=== PATIENT | male | born 1955 | race Caucasian/White ===

== ENCOUNTER 2018-09-26 09:57 | Outpatient (REF) | payer OTHER, SELFPAY ==
[2018-09-26 21:10] LABS: Anion Gap 9.6 mmol/L (3-11); BUN 16 mg/dL (7-18); CO2 30.4 mmol/L (21.0-32.0); CREATININE 1.06 mg/dL (0.70-1.30); Chloride 96 mmol/L (98-107); Cholesterol 276 mg/dL (50-200); Glucose 253 mg/dL (70-100); HDL Cholesterol 40 mg/dL (40-60); Hemoglobin A1C 9.9 % (4.5-6.2); LDL CHOLESTEROL 185 mg/dL (<100); Potassium 4.4 mmol/L (3.5-5.1); Sodium 136 mmol/L (136-145); Triglyceride 249 mg/dL (30-150)
[2018-09-26 22:46] LABS: COMMENT (LAB VIEW ONLY) 129.52 mg/dL
== END 2018-09-26 10:17 ==
LOC: NCHCN 09:57
PROVIDERS: PCP Internal Medicine; Visit Provider Internal Medicine
DX: E11.9 Type 2 diabetes mellitus without complications (principal); I10 Essential (primary) hypertension; E78.00 Pure hypercholesterolemia, unspecified
CPT/HCPCS: 80048; 80061; 83721; 82043; 82570; 83036

== ENCOUNTER 2018-12-11 11:34 | Outpatient (REF) | payer OTHER, SELFPAY ==
[2018-12-11 21:56] LABS: Anion Gap 12.4 mmol/L (3-11); BUN 42 mg/dL (7-18); CO2 26.6 mmol/L (21.0-32.0); CREATININE 1.58 mg/dL (0.70-1.30); Calcium 10.2 mg/dL (8.5-10.1); Chloride 101 mmol/L (98-107); Estimated GFR 44.52 (mL/min/1.73m2); Glucose 151 mg/dL (70-100); Potassium 5.1 mmol/L (3.5-5.1); Sodium 140 mmol/L (136-145)
== END 2018-12-11 11:54 ==
LOC: NCHCN 11:34
PROVIDERS: PCP Internal Medicine; Visit Provider Internal Medicine
DX: I50.9 Heart failure, unspecified (principal)
CPT/HCPCS: 80048

== ENCOUNTER 2018-12-18 12:51 | Outpatient (REF) | payer OTHER, SELFPAY ==
[2018-12-18 21:21] LABS: Anion Gap 13.1 mmol/L (3-11); BUN 40 mg/dL (7-18); CO2 23.9 mmol/L (21.0-32.0); CREATININE 1.54 mg/dL (0.70-1.30); Calcium 9.8 mg/dL (8.5-10.1); Chloride 102 mmol/L (98-107); Estimated GFR 45.85 (mL/min/1.73m2); Glucose 110 mg/dL (70-100); Potassium 4.9 mmol/L (3.5-5.1); Sodium 139 mmol/L (136-145)
== END 2018-12-18 13:11 ==
LOC: NCHCN 12:51
PROVIDERS: PCP Internal Medicine; Visit Provider Internal Medicine
DX: I50.9 Heart failure, unspecified (principal)
CPT/HCPCS: 80048

== ENCOUNTER 2018-12-26 08:56 | Outpatient (REF) | payer OTHER, SELFPAY ==
[2018-12-26 21:37] LABS: Anion Gap 11.4 mmol/L (3-11); BUN 27 mg/dL (7-18); CO2 24.6 mmol/L (21.0-32.0); CREATININE 1.33 mg/dL (0.70-1.30); Calcium 9.3 mg/dL (8.5-10.1); Chloride 105 mmol/L (98-107); Estimated GFR 54.31 (mL/min/1.73m2); Glucose 145 mg/dL (70-100); Potassium 4.8 mmol/L (3.5-5.1); Sodium 141 mmol/L (136-145)
== END 2018-12-26 09:16 ==
LOC: NCHCN 08:56
PROVIDERS: PCP Internal Medicine; Visit Provider Internal Medicine
DX: I50.9 Heart failure, unspecified (principal)
CPT/HCPCS: 80048

== ENCOUNTER 2019-01-12 22:02 | Outpatient (REF) | payer OTHER, SELFPAY ==
[2019-01-12 21:13] LABS: Anion Gap 10.2 mmol/L (3-11); BUN 21 mg/dL (7-18); CO2 26.8 mmol/L (21.0-32.0); Calcium 9.9 mg/dL (8.5-10.1); Chloride 103 mmol/L (98-107); Glucose 99 mg/dL (70-100); Potassium 4.9 mmol/L (3.5-5.1); Sodium 140 mmol/L (136-145)
[2019-01-15 11:42] LABS: HBs Antibody, Quant <3.1 mIU/mL; Hepatitis B Surface Ab Negative; Hepatitis B Surface Ag Negative (NEGAT)
== END 2019-01-12 22:22 ==
LOC: NCHCN 22:02
PROVIDERS: PCP Internal Medicine; Visit Provider Internal Medicine
DX: R94.5 Abnormal results of liver function studies (principal); N17.9 Acute kidney failure, unspecified
CPT/HCPCS: 80048; 86706; 87340

== ENCOUNTER 2019-02-02 12:36 | Outpatient (REF) | payer OTHER, SELFPAY ==
[2019-02-02 21:20] LABS: BUN 25 mg/dL (7-18); CREATININE 1.17 mg/dL (0.70-1.30); Calcium 9.9 mg/dL (8.5-10.1); Chloride 104 mmol/L (98-107); Glucose 144 mg/dL (70-100); Potassium 5.1 mmol/L (3.5-5.1); Sodium 141 mmol/L (136-145)
== END 2019-02-02 12:56 ==
LOC: NCHCN 12:36
PROVIDERS: PCP Internal Medicine; Visit Provider Internal Medicine
DX: N17.9 Acute kidney failure, unspecified (principal)
CPT/HCPCS: 80048

== ENCOUNTER 2019-03-22 13:21 | Outpatient (REF) | payer OTHER, SELFPAY ==
[2019-03-22 22:50] LABS: Anion Gap 8.9 mmol/L (3-11); BUN 19 mg/dL (7-18); CO2 27.1 mmol/L (21.0-32.0); CREATININE 1.25 mg/dL (0.70-1.30); Calcium 9.5 mg/dL (8.5-10.1); Chloride 106 mmol/L (98-107); Estimated GFR 58.34 (mL/min/1.73m2); Glucose 156 mg/dL (74-106); Sodium 142 mmol/L (136-145)
== END 2019-03-22 13:41 ==
LOC: NCHCN 13:21
PROVIDERS: PCP Internal Medicine; Visit Provider Internal Medicine
DX: I10 Essential (primary) hypertension (principal); E11.9 Type 2 diabetes mellitus without complications
CPT/HCPCS: 80048

== ENCOUNTER 2019-10-22 22:39 | Outpatient (REF) | payer OTHER, SELFPAY ==
[2019-10-22 22:40] LABS: Hemoglobin A1C 7.5 % (3.8-5.6)
[2019-10-22 22:50] LABS: ALT 50 U/L (16-63); AST 29 U/L (15-37); Albumin 4.1 g/dL (3.4-5.0); Alkaline Phosphatase 140 U/L (46-116); Anion Gap 9.1 mmol/L (3-11); BUN 18 mg/dL (7-18); Bilirubin, Total 1.1 mg/dL (0.2-1.0); CO2 25.9 mmol/L (21.0-32.0); CREATININE 1.39 mg/dL (0.70-1.30); Calcium 9.5 mg/dL (8.5-10.1); Calculated LDL 91 mg/dL (<100); Chloride 106 mmol/L (98-107); Cholesterol 152 mg/dL (<200); Estimated GFR 51.45 (mL/min/1.73m2); Glucose 131 mg/dL (74-106); HDL Cholesterol 45 mg/dL (40-60); Potassium 5.9 mmol/L (3.5-5.1); Sodium 141 mmol/L (136-145); Total Protein 7.5 g/dL (6.4-8.2); Triglyceride 84 mg/dL (<150)
[2019-10-24 11:10] LABS: PSA, Screening 0.2 ng/mL (0.0-4.5)
== END 2019-10-22 22:59 ==
LOC: NCHCN 22:39
PROVIDERS: PCP Internal Medicine; Visit Provider Internal Medicine
DX: E11.9 Type 2 diabetes mellitus without complications (principal); I25.10 Atherosclerotic heart disease of native coronary artery without angina pectoris; Z12.5 Encounter for screening for malignant neoplasm of prostate
CPT/HCPCS: 80053; 80061; 84153; 83036

== ENCOUNTER 2019-11-13 08:47 | Outpatient (REF) | payer OTHER, SELFPAY | END 2019-11-13 09:07 | LOC: NCHCN 08:47 | PROVIDERS: PCP Internal Medicine; Visit Provider Internal Medicine | DX: E87.5 Hyperkalemia (principal) | CPT/HCPCS: 84132 ==

== ENCOUNTER 2020-01-21 18:42 | Outpatient (REF) | payer OTHER, SELFPAY ==
[2020-01-21 21:50] LABS: COMMENT (LAB VIEW ONLY) 127.56 mg/dL
== END 2020-01-21 19:02 ==
LOC: NCHCN 18:42
PROVIDERS: PCP Internal Medicine; Visit Provider Internal Medicine
DX: E11.9 Type 2 diabetes mellitus without complications (principal)
CPT/HCPCS: 82043; 82570

== ENCOUNTER 2020-02-25 08:35 | Outpatient (REF) | payer OTHER, SELFPAY ==
[2020-02-25 21:05] LABS: Anion Gap 7.5 mmol/L (3-11); BUN 16 mg/dL (7-18); CO2 27.5 mmol/L (21.0-32.0); CREATININE 1.36 mg/dL (0.70-1.30); Calcium 9.5 mg/dL (8.5-10.1); Chloride 101 mmol/L (98-107); Estimated GFR 52.76 (mL/min/1.73m2); Glucose 188 mg/dL (74-106); Potassium 5.4 mmol/L (3.5-5.1); Sodium 136 mmol/L (136-145)
== END 2020-02-25 08:55 ==
LOC: NCHCN 08:35
PROVIDERS: PCP Internal Medicine; Visit Provider Internal Medicine
DX: I10 Essential (primary) hypertension (principal)
CPT/HCPCS: 80048

== ENCOUNTER 2020-03-24 10:17 | Outpatient (REF) | payer OTHER, SELFPAY ==
[2020-03-24 21:55] LABS: Anion Gap 7.1 mmol/L (3-11); BUN 20 mg/dL (7-18); CO2 27.9 mmol/L (21.0-32.0); CREATININE 1.61 mg/dL (0.70-1.30); Calcium 9.4 mg/dL (8.5-10.1); Chloride 103 mmol/L (98-107); Estimated GFR 43.42 (mL/min/1.73m2); Glucose 159 mg/dL (74-106); NT-proBNP 1198 pg/mL (<300); Potassium 5.5 mmol/L (3.5-5.1); Sodium 138 mmol/L (136-145)
== END 2020-03-24 10:37 ==
LOC: NCHCN 10:17
PROVIDERS: PCP Internal Medicine; Visit Provider Internal Medicine
DX: I10 Essential (primary) hypertension (principal); R06.02 Shortness of breath
CPT/HCPCS: 80048; 83880

== ENCOUNTER 2020-03-28 14:03 | Outpatient (REF) | payer OTHER, SELFPAY ==
[2020-03-28 22:02] LABS: Anion Gap 7.8 mmol/L (3-11); BUN 35 mg/dL (7-18); CO2 29.2 mmol/L (21.0-32.0); CREATININE 1.92 mg/dL (0.70-1.30); Calcium 9.5 mg/dL (8.5-10.1); Chloride 100 mmol/L (98-107); Estimated GFR 35.44 (mL/min/1.73m2); Glucose 216 mg/dL (74-106); NT-proBNP 489 pg/mL (<300); Potassium 4.9 mmol/L (3.5-5.1); Sodium 137 mmol/L (136-145)
== END 2020-03-28 14:23 ==
LOC: NCHCN 14:03
PROVIDERS: PCP Internal Medicine; Visit Provider Internal Medicine
DX: I10 Essential (primary) hypertension (principal); R06.02 Shortness of breath
CPT/HCPCS: 80048; 83880

== ENCOUNTER 2020-08-28 16:00 | Outpatient (REF) | payer OTHER, SELFPAY ==
[2020-08-28 21:20] LABS: HCT 35.8 % (40.0-50.0); MCH 29.4 pg (27.0-33.0); MCHC 30.7 % (32.0-36.0); MCV 95.7 fL (80-95); MPV 10.8 fL (8.0-11.0); Platelet Count 211 10^3/uL (130-400); RBC 3.74 10^6/uL (4.36-5.78); RDW 13.5 % (11.8-14.1); RDW-SD 47.7 fL; WBC 6.53 10^3/uL (4.4-10.8)
[2020-08-28 21:48] LABS: Anion Gap 10.3 mmol/L (3-11); BUN 25 mg/dL (7-18); CO2 26.7 mmol/L (21.0-32.0); CREATININE 1.7 mg/dL (0.70-1.30); Calcium 9.5 mg/dL (8.5-10.1); Chloride 105 mmol/L (98-107); Estimated GFR 40.65 (mL/min/1.73m2); Glucose 118 mg/dL (74-106); NT-proBNP 2998 pg/mL (<300); Potassium 4.8 mmol/L (3.5-5.1); Sodium 142 mmol/L (136-145)
== END 2020-08-28 16:01 | disposition home or self-care (01) ==
LOC: NCHCN 16:00
PROVIDERS: PCP Internal Medicine; Visit Provider Registered Nurse
DX: N18.9 Chronic kidney disease, unspecified (principal); I50.9 Heart failure, unspecified; I25.10 Atherosclerotic heart disease of native coronary artery without angina pectoris
CPT/HCPCS: 80048; 85027; 83880

== ENCOUNTER 2020-09-04 15:41 | Outpatient (REF) | payer OTHER, SELFPAY ==
[2020-09-04 21:04] LABS: Anion Gap 8.7 mmol/L (3-11); BUN 18 mg/dL (7-18); CO2 30.3 mmol/L (21.0-32.0); CREATININE 1.5 mg/dL (0.70-1.30); Calcium 9.4 mg/dL (8.5-10.1); Chloride 105 mmol/L (98-107); Estimated GFR 46.97 (mL/min/1.73m2); Glucose 143 mg/dL (74-106); Potassium 4.6 mmol/L (3.5-5.1); Sodium 144 mmol/L (136-145)
== END 2020-09-04 15:42 | disposition home or self-care (01) ==
LOC: NCHCN 15:41
PROVIDERS: PCP Internal Medicine; Visit Provider Internal Medicine
DX: N18.9 Chronic kidney disease, unspecified (principal)
CPT/HCPCS: 80048

== ENCOUNTER 2021-02-16 16:08 | Outpatient (REF) | payer OTHER, SELFPAY ==
[2021-02-16 16:53] LABS: Anion Gap 12.4 mmol/L (3-11); BUN 31 mg/dL (7-18); CO2 25.6 mmol/L (21.0-32.0); CREATININE 1.8 mg/dL (0.70-1.30); Calcium 9.9 mg/dL (8.5-10.1); Chloride 101 mmol/L (98-107); Estimated GFR 38.06 (mL/min/1.73m2); Glucose 206 mg/dL (74-106); Potassium 5.1 mmol/L (3.5-5.1); Sodium 139 mmol/L (136-145)
== END 2021-02-16 16:09 | disposition home or self-care (01) ==
LOC: NCHCN 16:08
PROVIDERS: PCP Internal Medicine; Visit Provider Internal Medicine
DX: I50.9 Heart failure, unspecified (principal)
CPT/HCPCS: 80048

== ENCOUNTER 2021-03-12 09:04 | Outpatient (REF) | payer MEDICARE, SELFPAY ==
[2021-03-13 09:09] LABS: BUN 25 mg/dL (7-18); CREATININE 1.7 mg/dL (0.70-1.30); Calcium 9.8 mg/dL (8.5-10.1); Chloride 103 mmol/L (98-107); Estimated GFR 40.65 (mL/min/1.73m2); Glucose 187 mg/dL (74-106); Potassium 5.6 mmol/L (3.5-5.1); Sodium 140 mmol/L (136-145)
[2021-03-13 09:10] LABS: Anion Gap 5.7 mmol/L (3-11); CO2 31.3 mmol/L (21.0-32.0)
== END 2021-03-12 09:05 | disposition home or self-care (01) ==
LOC: NCHCN 09:04
PROVIDERS: PCP Internal Medicine; Visit Provider Internal Medicine
DX: I10 Essential (primary) hypertension (principal)
CPT/HCPCS: 80048

== ENCOUNTER 2021-03-30 22:02 | Outpatient (REF) | payer MEDICARE, SELFPAY ==
[2021-03-30 21:56] LABS: Anion Gap 12.8 mmol/L (3-11); BUN 26 mg/dL (7-18); CO2 26.2 mmol/L (21.0-32.0); CREATININE 1.8 mg/dL (0.70-1.30); Calcium 9.7 mg/dL (8.5-10.1); Chloride 99 mmol/L (98-107); Estimated GFR 38.06 (mL/min/1.73m2); Glucose 132 mg/dL (74-106); Sodium 138 mmol/L (136-145)
== END 2021-03-30 22:03 | disposition home or self-care (01) ==
LOC: NCHCN 22:02
PROVIDERS: PCP Internal Medicine; Visit Provider Internal Medicine
DX: N18.9 Chronic kidney disease, unspecified (principal); E87.5 Hyperkalemia
CPT/HCPCS: 80048

== ENCOUNTER 2021-08-24 08:24 | Outpatient (REF) | payer MEDICARE, SELFPAY ==
[2021-08-24 16:28] LABS: Anion Gap 7.9 mmol/L (3-11); BUN 27 mg/dL (7-18); CO2 27.1 mmol/L (21.0-32.0); CREATININE 1.6 mg/dL (0.70-1.30); Calcium 9.1 mg/dL (8.5-10.1); Calculated LDL 107 mg/dL (<100); Chloride 102 mmol/L (98-107); Cholesterol 189 mg/dL (<200); Estimated GFR 43.46 (mL/min/1.73m2); Glucose 169 mg/dL (74-106); HDL Cholesterol 36 mg/dL (40-60); Potassium 5.2 mmol/L (3.5-5.1); Sodium 137 mmol/L (136-145); Triglyceride 232 mg/dL (<150)
[2021-08-24 17:00] LABS: Hemoglobin A1C 7.6 % (<5.7)
[2021-08-24 17:07] LABS: COMMENT (LAB VIEW ONLY) 79.16 mg/dL
[2021-08-24 17:14] LABS: Microalb ug/mg Crea 248.9 ug/mg Cr
== END 2021-08-24 08:25 | disposition home or self-care (01) ==
LOC: NCHCN 08:24
PROVIDERS: PCP Internal Medicine; Visit Provider Internal Medicine
DX: I10 Essential (primary) hypertension (principal); E11.9 Type 2 diabetes mellitus without complications; N18.9 Chronic kidney disease, unspecified
CPT/HCPCS: 80048; 80061; 82043; 82570; 83036

== ENCOUNTER 2021-12-23 15:48 | Outpatient (REF) | payer MEDICARE, SELFPAY ==
[2021-12-23 17:19] LABS: Calculated LDL 60 mg/dL (<100); Cholesterol 165 mg/dL (<200); HDL Cholesterol 33 mg/dL (40-60); Triglyceride 362 mg/dL (<150)
== END 2021-12-23 15:49 | disposition home or self-care (01) ==
LOC: NCHCN 15:48
PROVIDERS: PCP Internal Medicine; Visit Provider Nurse Practitioner Family
DX: I25.10 Atherosclerotic heart disease of native coronary artery without angina pectoris (principal)
CPT/HCPCS: 80061

== ENCOUNTER 2022-08-27 12:29 | Outpatient (REF) | payer MEDICARE, SELFPAY ==
[2022-08-27 13:41] LABS: HCT 44.1 % (40.0-50.0); HGB 14.3 g/dL (13.5-17.5); MCH 31.5 pg (27.0-33.0); MCHC 32.4 % (32.0-36.0); MCV 97 fL (80-95); Platelet Count 236 10^3/uL (130-400); RBC 4.54 10^6/uL (4.36-5.78); RDW 13.1 % (11.8-14.1); RDW-SD 46.8 fL; WBC 7.12 10^3/uL (4.4-10.8)
[2022-08-27 14:15] LABS: Hemoglobin A1C 7.3 % (<5.7)
[2022-08-27 14:17] LABS: ALT 34 U/L (16-63); AST 29 U/L (15-37); Albumin 3.7 g/dL (3.4-5.0); Alkaline Phosphatase 143 U/L (46-116); BUN 19 mg/dL (7-18); Bilirubin, Total 0.8 mg/dL (0.2-1.0); CREATININE 1.4 mg/dL (0.70-1.30); Calcium 9.7 mg/dL (8.5-10.1); Calculated LDL 72 mg/dL (<100); Chloride 104 mmol/L (98-107); Cholesterol 164 mg/dL (<200); Estimated GFR 55.09 (mL/min/1.73m2); Glucose 176 mg/dL (74-106); HDL Cholesterol 42 mg/dL (40-60); Potassium 4.3 mmol/L (3.5-5.1); Sodium 141 mmol/L (136-145); Total Protein 7.7 g/dL (6.4-8.2); Triglyceride 252 mg/dL (<150)
== END 2022-08-27 12:30 | disposition home or self-care (01) ==
LOC: NCHCN 12:29
PROVIDERS: PCP Internal Medicine; Visit Provider Internal Medicine
DX: I10 Essential (primary) hypertension (principal); E11.9 Type 2 diabetes mellitus without complications; E87.5 Hyperkalemia; R60.0 Localized edema; M43.6 Torticollis; I25.10 Atherosclerotic heart disease of native coronary artery without angina pectoris; E78.00 Pure hypercholesterolemia, unspecified
CPT/HCPCS: 80053; 80061; 85027; 83036

== ENCOUNTER 2022-08-30 15:36 | Outpatient (REF) | payer MEDICARE, SELFPAY ==
[2022-08-30 22:25] LABS: COMMENT (LAB VIEW ONLY) 33.61 mg/dL
== END 2022-08-30 15:37 | disposition home or self-care (01) ==
LOC: NCHCN 15:36
PROVIDERS: PCP Internal Medicine; Visit Provider Internal Medicine
DX: E11.9 Type 2 diabetes mellitus without complications (principal)
CPT/HCPCS: 82043; 82570

== ENCOUNTER 2023-01-21 09:13 | Outpatient (REF) | payer MEDICARE, SELFPAY ==
[2023-01-21 15:30] LABS: HCT 40.6 % (40.0-50.0); MCH 30.4 pg (27.0-33.0); MCV 95 fL (80-95); MPV 10.1 fL (8.0-11.0); Platelet Count 263 10^3/uL (130-400); RBC 4.27 10^6/uL (4.36-5.78); RDW 13.7 % (11.8-14.1); RDW-SD 47.8 fL; WBC 7.88 10^3/uL (4.4-10.8)
[2023-01-21 16:28] LABS: ALT 28 U/L (16-63); AST 19 U/L (15-37); Albumin 3.6 g/dL (3.4-5.0); Alkaline Phosphatase 124 U/L (46-116); Anion Gap 8.4 mmol/L (3-11); BUN 25 mg/dL (7-18); Bilirubin, Total 1.5 mg/dL (0.2-1.0); CO2 27.6 mmol/L (21.0-32.0); CREATININE 1.7 mg/dL (0.70-1.30); Calcium 9.7 mg/dL (8.5-10.1); Calculated LDL 52 mg/dL (<100); Chloride 101 mmol/L (98-107); Cholesterol 112 mg/dL (<200); Estimated GFR 43.64 (mL/min/1.73m2); Glucose 141 mg/dL (74-106); HDL Cholesterol 37 mg/dL (40-60); NT-proBNP 1531 pg/mL (<300); Potassium 4.8 mmol/L (3.5-5.1); Sodium 137 mmol/L (136-145); Total Protein 7.7 g/dL (6.4-8.2); Triglyceride 117 mg/dL (<150)
[2023-01-21 16:37] LABS: Hemoglobin A1C 6.9 % (<5.7)
== END 2023-01-21 09:14 | disposition home or self-care (01) ==
LOC: LBO 09:13
PROVIDERS: PCP Internal Medicine
DX: E11.9 Type 2 diabetes mellitus without complications (principal); E78.5 Hyperlipidemia, unspecified; I50.9 Heart failure, unspecified; I25.10 Atherosclerotic heart disease of native coronary artery without angina pectoris
CPT/HCPCS: 80053; 80061; 85027; 83036; 83880

== ENCOUNTER 2023-09-29 16:19 | Outpatient (REF) | payer MEDICARE, SELFPAY ==
[2023-09-29 16:31] LABS: Anion Gap 11.6 mmol/L (3-11); BUN 27 mg/dL (7-18); CO2 27.4 mmol/L (21.0-32.0); CREATININE 1.8 mg/dL (0.70-1.30); Calcium 9.5 mg/dL (8.5-10.1); Chloride 102 mmol/L (98-107); Estimated GFR 40.49 (mL/min/1.73m2); Glucose 170 mg/dL (74-106); Potassium 4.9 mmol/L (3.5-5.1); Sodium 141 mmol/L (136-145)
[2023-09-29 16:57] LABS: Hemoglobin A1C 5.9 % (<5.7)
== END 2023-09-29 16:20 | disposition home or self-care (01) ==
LOC: NCHCN 16:19
PROVIDERS: PCP Internal Medicine; Visit Provider Internal Medicine
DX: I10 Essential (primary) hypertension (principal)
CPT/HCPCS: 80048; 83036

== ENCOUNTER 2025-02-07 08:23 | Outpatient (REF) | payer MEDICARE, SELFPAY ==
[2025-02-07 14:54] LABS: HCT 31.1 % (40.0-50.0); HGB 9.2 g/dL (13.5-17.5); MCH 27.4 pg (27.0-33.0); MCHC 29.6 % (32.0-36.0); MCV 93 fL (80-95); MPV 9.8 fL (8.0-11.0); Platelet Count 252 10^3/uL (130-400); RBC 3.36 10^6/uL (4.36-5.78); RDW 15.5 % (11.8-14.1); RDW-SD 52.2 fL; WBC 6.44 10^3/uL (4.4-10.8)
[2025-02-07 15:17] LABS: ALT 23 U/L (16-63); AST 22 U/L (15-37); Albumin 3.7 g/dL (3.4-5.0); Alkaline Phosphatase 122 U/L (46-116); Anion Gap 11.7 mmol/L (3-11); BUN 29 mg/dL (7-18); Bilirubin, Total 0.8 mg/dL (0.2-1.0); CO2 26.3 mmol/L (21.0-32.0); Calcium 9.1 mg/dL (8.5-10.1); Calculated LDL 63 mg/dL (<100); Chloride 100 mmol/L (98-107); Cholesterol 124 mg/dL (<200); Estimated GFR 40.24 (mL/min/1.73m2); Glucose 129 mg/dL (74-106); HDL Cholesterol 40 mg/dL (>or=40); Potassium 5.2 mmol/L (3.5-5.1); Sodium 138 mmol/L (136-145); Total Protein 7.3 g/dL (6.4-8.2); Triglyceride 106 mg/dL (<150); Vitamin D 25 Total 44 ng/mL (30-100)
[2025-02-07 15:19] LABS: Hemoglobin A1C 6.1 % (<5.7)
[2025-02-07 17:25] LABS: Ferritin 12 ng/mL (26-388)
== END 2025-02-07 08:24 | disposition home or self-care (01) ==
LOC: NCHCN 08:23
PROVIDERS: PCP Internal Medicine; Visit Provider Internal Medicine
DX: I25.10 Atherosclerotic heart disease of native coronary artery without angina pectoris (principal); E11.9 Type 2 diabetes mellitus without complications; N18.9 Chronic kidney disease, unspecified; E55.9 Vitamin D deficiency, unspecified; D64.9 Anemia, unspecified
CPT/HCPCS: 80053; 80061; 82306; 85027; 82728; 83036

== ENCOUNTER 2025-02-14 20:23 | Outpatient (REF) | payer MEDICARE, SELFPAY ==
[2025-02-14 21:54] LABS: COMMENT (LAB VIEW ONLY) 35.71 mg/dL; Microalb ug/mg Crea 86.3 ug/mg Cr
== END 2025-02-14 20:24 | disposition home or self-care (01) ==
LOC: NCHCN 20:23
PROVIDERS: PCP Internal Medicine; Visit Provider Internal Medicine
DX: E11.9 Type 2 diabetes mellitus without complications (principal)
CPT/HCPCS: 82043; 82570